=== PATIENT | male | born 1940 | race Caucasian/White ===

== ENCOUNTER → 2016-11-03 | Outpatient (CLI) | payer MEDICARE, BC ==
--- NOTE | 2016-11-03 11:17 | RADIOLOGY REPORT (SQ) ---
EXAM DESCRIPTION: MRI CERVICAL SPINE WITHOUT COMPLETED DATE/TIME: 11/03/2016 10:44 am REASON FOR STUDY: OTHER SYMPTOMS AND SIGNS INVOLVING THE MUSCULOSKELETAL SYSTEM (R29.898) R29.898 O TH SYMPTOMS AND SIGNS INVOLVING THE MUSCULOSKELETAL COMPARISON: None. TECHNIQUE: Sagittal and Axial imaging includes T1, T2, STIR and gradient echo sequences. LIMITATIONS: None. FINDINGS: ALIGNMENT: Reversal of cervical curvature. VERTEBRAE: Intact. BONE MARROW: Normal. No marrow replacement or reactive changes. DISCS: Diffuse decreased T2 weighted intervertebral disc signal. Disc space loss of height at C5-6 a nd C6-7 HARDWARE: None in the spine. CORD AND BASE OF BRAIN: Normal in size and signal intensity. SOFT TISSUES: No soft tissue masses. C1-C2: No significant spinal stenosis. C2-C3: No central or foraminal stenosis C3-C4: Mild diffuse posterior disc bulging and bony spurring partly effaces the ventral thecal sac wi thout cord flattening or abnormal intrinsic cord signal. Borderline central canal narrowing. Modera te to high-grade right foraminal narrowing at C3-4 from facet and uncovertebral hypertrophy. No left C3-4 foraminal narrowing. C4-C5: Broad diffuse posterior disc bulge and bony spurring effaces the ventral thecal sac, abuts the ventral cord with mild cord flattening. No abnormal intrinsic cord signal. Mild central canal narr owing. Moderate bilateral foraminal narrowing from facet and uncovertebral hypertrophy left greater than right C5-C6: Broad diffuse posterior disc bulge and bony spurring effaces the ventral thecal sac, abuts the ventral cord with mild cord flattening. No abnormal intrinsic cord signal. Mild central canal sten osis. High-grade bilateral foraminal narrowing from facet and uncovertebral hypertrophy. C6-C7: Broad diffuse posterior disc bulge and bony spurring partly effaces the ventral thecal sac and abuts the ventral cord without cord flattening or abnormal intrinsic cord signal. Mild central umair l narrowing. High-grade bilateral foraminal narrowing from facet and uncovertebral hypertrophy. C7-T1: Mild central canal narrowing results from broad diffuse posterior disc bulging and bony spurri ng along with bulky asymmetric right-sided facet hypertrophy and ligamentum flavum ossification. Mod erate bilateral foraminal narrowing from facet and uncovertebral hypertrophy right greater than left. OTHER: Bilateral foraminal narrowing at T1-2 and T2-3 related to facet hypertrophy. IMPRESSION: Multilevel degenerative changes as above. TECHNICAL DOCUMENTATION: JOB ID: [id number] [email or web address]- All Rights Reserved
== END ==
LOC: RAD 09:25
PROVIDERS: ATTEND Physician Assistant
DX: R29.898 Other symptoms and signs involving the musculoskeletal system (principal); M51.34 Other intervertebral disc degeneration, thoracic region
CPT/HCPCS: 72141

== ENCOUNTER → 2016-12-07 | Outpatient (CLI) | payer MEDICARE, BC ==
[2016-12-07 15:47] LABS: HEMATOCRIT 46.4 % (37.9-51.0); HEMOGLOBIN 16.5 g/dL (13.5-17.0); HGB HCT DIFFERENCE 3.1; MEAN CORPUSCULAR HEMOGLOBIN 33.5 pg (27.0-33.4); MEAN CORPUSCULAR HGB CONC 35.6 g/dL (32.0-36.0); MEAN CORPUSCULAR VOLUME 94 fl (80-97); RED BLOOD COUNT 4.94 10^6/uL (4.35-5.55); RED CELL DISTRIBUTION WIDTH 12.7 % (11.5-14.0); WHITE BLOOD COUNT 7.6 10^3/uL (4.0-10.5)
== END ==
LOC: OD 14:57
PROVIDERS: ATTEND Urology
DX: E29.1 Testicular hypofunction (principal); N52.8 Other male erectile dysfunction; N52.9 Male erectile dysfunction, unspecified; I10 Essential (primary) hypertension
CPT/HCPCS: 36415; 85027

== ENCOUNTER 2017-02-08 10:10 | Emergency (ER) | payer MEDICARE, BC ==
--- NOTE | 2017-02-08 10:24 | ER Document Report ---
ED Medical Screen (RME) - General Chief Complaint: Breathing Difficulty Stated Complaint: DIFFICULTY BREATHING Time Seen by Provider: 02/08/17 10:19 Notes: 76M here w c/o neck swelling and SOB only while lying flat that has prog worsened over past few days. States he had "some kind of spinal surgery" at [facility] 1 week ago and did not have any of these sx right after the surgery. He denies any CP discomfort. He has no SOB while sitting upright or with exertion. SOB is only w lying flat, states he feels like he is choking. Does not take any blood thinners. Denies purulent drainage. EXAM: L anterior lateral neck swelling w/o TTP Mod ecchymosis visualized No active drainage TRAVEL OUTSIDE OF THE [place] IN LAST 30 DAYS: No - Related Data Allergies/Adverse Reactions: No Known Allergies Allergy (Verified 02/08/17 10:12) Home Medications: Current Home Medications Amlodipine Besylate [Norvasc 10 mg Tablet] 1 tab PO BID 02/08/17 [History] Past Medical History - Social History Frequency of alcohol use: None Drug Abuse: None Renal/ Medical History: Denies: Hx Peritoneal Dialysis
[2017-02-08 11:05] LABS: ABSOLUTE BASOPHILS # (AUTO) 0.1 10^3/uL (0.0-0.2); ABSOLUTE EOSINOPHILS # (AUTO) 0.1 10^3/uL (0.0-0.6); ABSOLUTE LYMPHOCYTES (AUTO) 1.2 10^3/uL (0.5-4.7); ABSOLUTE MONOCYTES (AUTO) 1.3 10^3/uL (0.1-1.4); ABSOLUTE NEUT (AUTO) 7.6 10^3/uL (1.7-8.2); BASOPHILS % (AUTO) 0.6 % (0-2); EOSINOPHILS % (AUTO) 0.9 % (0-6); HEMATOCRIT 47.4 % (37.9-51.0); HEMOGLOBIN 16.1 g/dL (13.5-17.0); LYMPHOCYTES % (AUTO) 11.7 % (13-45); MEAN CORPUSCULAR HEMOGLOBIN 32.9 pg (27.0-33.4); MEAN CORPUSCULAR HGB CONC 33.9 g/dL (32.0-36.0); MEAN CORPUSCULAR VOLUME 97 fl (80-97); MONOCYTES % (AUTO) 12.5 % (3-13); PLATELET COUNT 345 10^3/uL (150-450); RED BLOOD COUNT 4.89 10^6/uL (4.35-5.55); RED CELL DISTRIBUTION WIDTH 13.2 % (11.5-14.0); SEGMENTED NEUTROPHILS % (AUTO) 74.3 % (42-78); TOTAL CELLS COUNTED % (AUTO) 100 %; WHITE BLOOD COUNT 10.3 10^3/uL (4.0-10.5)
--- NOTE | 2017-02-08 11:08 | ER Document Report ---
ED Respiratory Problem - General Mode of Arrival: Ambulatory Information source: Patient TRAVEL OUTSIDE OF THE [place] IN LAST 30 DAYS: No <MAXWELL DIEGO - Last Filed: 02/08/17 11:48> <TONI DELCID - Last Filed: 02/08/17 18:05> <SHRAVAN LI - Last Filed: 02/08/17 19:23> - General Chief Complaint: Breathing Difficulty Stated Complaint: DIFFICULTY BREATHING Time Seen by Provider: 02/08/17 10:19 Notes: Patient is 76 year old male with a history of hypertension presenting to the emergency department complaining of worsening difficultly breathing when supine onset a few days ago. Patient states he recently had a C4-C6 fusion with cage via anterior approach on 02/02/2017 and that his symptoms did not appear directly after surgery. Patient states that when he is supine it feels like "a flap is closing over his airway". (MAXWELL DIEGO) - Related Data Allergies/Adverse Reactions: No Known Allergies Allergy (Verified 02/08/17 10:12) Home Medications: Current Home Medications Amlodipine Besylate [Norvasc 10 mg Tablet] 10 mg PO Q12 02/08/17 [History] Losartan Potassium [Cozaar 50 mg Tablet] 50 mg PO DAILY 02/08/17 [History] Oxycodone HCl [Oxycodone HCl] 5 mg PO Q8HP PRN 02/08/17 [History] Polyethylene Glycol 3350 [Miralax Powder 17 gm/Packet] 1 packet PO DAILY [History] Testosterone Cypionate [Depo-Testosterone] 200 mg IM [id number] 02/08/17 [History] Past Medical History - General Information source: Patient - Social History Smoking Status: Former Smoker Frequency of alcohol use: None Drug Abuse: None Family History: Reviewed & Not Pertinent Patient has suicidal ideation: No Patient has homicidal ideation: No - Past Medical History Cardiac Medical History: Reports: Hx Hypertension Past Surgical History: Reports: Other - Left Lower Lobectomy in 1999. Cervical surgery, C4-C6 fusion& cage 01/2017 <MAXWELL DIEGO - Last Filed: 02/08/17 11:48> <TONI DELCID - Last Filed: 02/08/17 18:05> <SHRAVAN LI E - Last Filed: 02/08/17 19:23> Other: Right Rotator cuff replaced. Left shoulder replacement. (MAXWELL DIEGO) Review of Systems - Review of Systems Constitutional: No symptoms reported EENT: No symptoms reported Cardiovascular: No symptoms reported Respiratory: See HPI, Other - difficulty breathing Gastrointestinal: No symptoms reported Genitourinary: No symptoms reported Male Genitourinary: No symptoms reported Musculoskeletal: No symptoms reported Skin: No symptoms reported Hematologic/Lymphatic: No symptoms reported Neurological/Psychological: No symptoms reported -: Yes All other systems reviewed and negative <MAXWELL DIEGO - Last Filed: 02/08/17 11:48> Physical Exam - General General appearance: Appears well, Alert In distress: None - HEENT Head: Normocephalic, Atraumatic Eyes: Normal Conjunctiva: Normal Pupils: PERRL Neck: Other - Ecchymosis to the left anterior lateral neck which goes down to shoulder - Respiratory Respiratory status: No respiratory distress Chest status: Ecchymosis Breath sounds: Wheezing - bilaterally - Cardiovascular Rhythm: Regular Heart sounds: Normal auscultation - Abdominal Inspection: Normal - Back Back: Normal - Extremities General upper extremity: Normal ROM General lower extremity: Normal ROM - Neurological Neuro grossly intact: Yes Cognition: Normal Orientation: AAOx4 Stew Coma Scale Eye Opening: Spontaneous [place] Coma Scale Verbal: Oriented [place] Coma Scale Motor: Obeys Commands Stew Coma Scale Total: 15 Speech: Normal - Psychological Associated symptoms: Normal affect, Normal mood - Skin Skin Temperature: Warm Skin Moisture: Dry Skin Color: Normal <MAXWELL DIEGO - Last Filed: 02/08/17 11:48> - Vital signs Vitals: Temp Pulse Resp BP Pulse Ox 98.7 F 104 H 16 154/82 H 97 02/08/17 10:16 02/08/17 10:16 02/08/17 10:16 02/08/17 10:16 02/08/17 10:16 Course - Laboratory Result Diagrams: 02/08/17 10:48 02/08/17 10:48 <MAXWELL DIEGO - Last Filed: 02/08/17 11:48> - Laboratory Result Diagrams: 02/08/17 10:48 02/08/17 10:48 - Diagnostic Test Radiology reviewed: Image reviewed, Reports reviewed - CTA of the neck shows surgical changes in the cervical spine with hardware. An extensive fluid collection in the prevertebral soft tissues. This is likely a large postoperative seroma. There is atherosclerosis involving the carotid arteries with 80-90% stenosis of the proximal right internal carotid artery. - Consults Dr. John Lopez Consulted provider: other - Will except as an ER to ER transfer for observation to be sure this seroma does not continue to expand and cause airway obstruction. - Transfer of Care Care transferred to following provider: Dr. Morris <TONI DELCID - Last Filed: 02/08/17 18:05> - Laboratory Result Diagrams: 02/08/17 10:48 02/08/17 10:48 <SHRAVAN LI - Last Filed: 02/08/17 19:23> - Re-evaluation Re-evalutation: 02/08/17 15:41 Dr. Lopez has requested that the patient come by ambulance, rather than family bring him. At this time I am told it will be at the 7:00 shift change before transportation will be available. His family was asked to go get his medications from home so that he can have his medications and take them as they are prescribed. (TONI DELCID) 02/08/17 19:23 Transport in ED. Patient reevaluated and he is stable for transfer. (SHRAVAN LI) - Vital Signs Vital signs: Temp Pulse Resp BP Pulse Ox 98.7 F 104 H 21 H 150/78 H 95 02/08/17 10:16 02/08/17 10:16 02/08/17 17:01 02/08/17 17:00 02/08/17 17:01 - Laboratory Laboratory results interpreted by me: 02/08/17 02/08/17 10:48 10:48 Lymphocytes % 11.7 L Glucose 157 H - Transfer of Care Notes: 02/08/17 18:05 Pending transfer to [facility] ED to ED transfer. (TONI DELCID) Discharge <MAXWELL DIEGO - Last Filed: 02/08/17 11:48> <TONI DELCID - Last Filed: 02/08/17 18:05> <SHRAVAN LI - Last Filed: 02/08/17 19:23> - Discharge Clinical Impression: Stenosis of right internal carotid artery Seroma, postoperative Qualifiers: Surgical complication system/body Area: musculoskeletal system Procedure type: musculoskeletal Qualified Code(s): M96.842 - Postprocedural seroma of a musculoskeletal structure following a musculoskeletal system procedure Condition: Stable Disposition: [place] Referrals: NEREYDA SANCHEZ MD [Primary Care Provider] - Follow up as needed Scribe Attestation: 02/08/17 12:44 I personally performed the services described in the documentation, reviewed and edited the documentation which was dictated to the scribe in my presence, and it accurately records my words and actions. (TONI DELCID) Scribe Documentation - Scribe Written by Scribe:: Kristin Bright, 02/08/2017 11:16 acting as scribe for :: Melissa <MAXWELL DIEGO - Last Filed: 02/08/17 11:48>
[2017-02-08 11:13] LABS: ANION GAP 12 (5-19); BLOOD UREA NITROGEN 14 mg/dL (7-20); CALCIUM 9.3 mg/dL (8.4-10.2); CARBON DIOXIDE 28 mmol/L (22-30); CHLORIDE 99 mmol/L (98-107); GLUCOSE 157 mg/dL (75-110); POTASSIUM 3.7 mmol/L (3.6-5.0); SODIUM 138.5 mmol/L (137-145)
[2017-02-08] MEDS ORDERED: OXYCODONE HCL IR 5 MG TABLET PO ONE (11:22)
--- NOTE | 2017-02-08 12:08 | RADIOLOGY REPORT (SQ) ---
EXAM DESCRIPTION: CTA NECK COMPLETED DATE/TIME: 02/08/2017 11:39 am REASON FOR STUDY: recent spine surg, neck swelling; infxn vs hematom COMPARISON: None. 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 Multiplanar reconstruction. 3-D MIPS and Volume-rendered imag es acquired at the workstation and saved to PACS. Images are reviewed in soft tissue, bone, lung w indows. All CT scanners at this facility use dose modulation, iterative reconstruction, and/or weight based d osing when appropriate to reduce radiation dose to as low as reasonably achievable (ALARA). [facility]: Dose Right [facility]: CareDose [facility]: Dose Right [facility]: Teradose 4D [facility]: Dynamighty CONTRAST TYPE AND DOSE: contrast/concentration: Isovue 370.00 mg/ml; Total Contrast Delivered: 70.0 ml; Total Saline Delivered: 75.0 ml RENAL FUNCTION: BUN 14 creatinine 0.69. LIMITATIONS: None. FINDINGS: AORTIC ARCH: Normal three-vessel origin. Bilateral subclavian arteries are patent. No d issection. RIGHT CAROTIDS: Patent vessels. Dense calcification in the carotid bulb and proximal internal and ex ternal carotid arteries. Estimated 80 to 90% stenosis of the proximal internal carotid artery. RIGHT VERTEBRAL: Patent. No dissection. LEFT CAROTIDS: Patent vessels. Dense calcification in the carotid bulb and proximal internal and ext ernal carotid arteries. Estimated 30% narrowing of the proximal internal carotid artery. LEFT VERTEBRAL: Patent. No dissection. OTHER: 3-D reconstructions confirm findings. SKULL BASE: Intact. MAJOR SALIVARY GLANDS: No solid or cystic masses. No inflammatory changes. LYMPHADENOPATHY: No adenopathy. MUCOSAL MASSES OR ASYMMETRY: No mucosal masses or asymmetry. LARYNX/CORDS: No abnormal findings. LUNG APICES: Clear. BONES: Degenerative changes in the cervical spine. Surgical hardware at C4, C 5, C 6, and C7. PREVERTEBRAL SOFT TISSUES: Extensive edema with fluid collection anterior to the surgical hardware. Somewhat difficult to fully visualize due to metallic artifact. Prevertebral soft tissue thickening and fluid extends from the level of C2 to at least C7. Maximum transverse measurement 4.5 cm and ma ximum AP thickness 1.5 cm. A component extends to the left lateral prevertebral soft tissues at the level of the vocal cords, measuring 2.5 cm. THYROID: Normal size. No masses. PARANASAL SINUSES: Clear. OTHER: No other significant finding. IMPRESSION: 1. SURGICAL CHANGES IN THE CERVICAL SPINE WITH HARDWARE. EXTENSIVE FLUID COLLECTION IN THE PREVERTEB RAL SOFT TISSUES DESCRIBED ABOVE. THIS IS EITHER A LARGE POSTOPERATIVE SEROMA OR A POSTOPERATIVE ABSCESS. 2. ATHEROSCLEROSIS INVOLVING THE CAROTID ARTERIES WITH 80 TO 90% STENOSIS OF THE PROXIMAL RIGHT INTER NAL CAROTID ARTERY. RECOMMEND FOLLOW-UP INDICATED. COMMENT: Quality ID #[id number]: Measurements of distal internal carotid diameter were used as the denomina tor for stenosis measurement. TECHNICAL DOCUMENTATION: JOB ID: [id number] Quality ID # [id number]: Final reports with documentation of one or more dose reduction techniques (e.g., Au tomated exposure control, adjustment of the mA and/or kV according to patient size, use of iterative reconstruction technique) [address]- All Rights Reserved
[2017-02-08 19:36] VITALS: BP 139/95
== END 2017-02-08 19:38 | disposition short-term general hospital (02) ==
LOC: ER 10:10
DX: M96.842 Postprocedural seroma of a musculoskeletal structure following a musculoskeletal system procedure (principal); Y83.8 Other surgical procedures as the cause of abnormal reaction of the patient, or of later complication, without mention of misadventure at the time of the procedure; I65.21 Occlusion and stenosis of right carotid artery; R06.00 Dyspnea, unspecified; I10 Essential (primary) hypertension; Z98.1 Arthrodesis status; Z87.891 Personal history of nicotine dependence; Z90.2 Acquired absence of lung [part of]
CPT/HCPCS: 99285; 36415; 87040; 85025; 80048; 70498; A9270

== ENCOUNTER → 2017-04-17 | Outpatient (CLI) | payer MEDICARE, BC | LOC: OD 14:02 | PROVIDERS: ATTEND Urology | DX: E29.1 Testicular hypofunction (principal); N52.8 Other male erectile dysfunction; N52.9 Male erectile dysfunction, unspecified; I10 Essential (primary) hypertension; N40.1 Benign prostatic hyperplasia with lower urinary tract symptoms | CPT/HCPCS: 36415; 84153 ==

== ENCOUNTER → 2017-08-14 | Outpatient (CLI) | payer MEDICARE, BC ==
--- NOTE | 2017-08-14 11:07 | RADIOLOGY REPORT (SQ) ---
EXAM DESCRIPTION: CT SOFT TISSUE NECK WITH COMPLETED DATE/TIME: 08/14/2017 10:37 am REASON FOR STUDY: GASTRO-ESOPHAGEAL REFLUX DISEASE WITHOUT L72.0 EPIDERMAL CYST R13.19 OTHER DYSPH AGIA K21.9 GASTRO-ESOPHAGEAL REFLUX DISEASE WITHOUT ESOPHAGITIS COMPARISON: CT angio neck 02/08/2017 MRI cervical spine 11/09/2016 TECHNIQUE: Post IV contrasted scanning from skull base through lung apices with review of bone, soft tissue and lung windows. Reconstructed coronal and sagittal MPR images reviewed. All images stored on PACS. All CT scanners at this facility use dose modulation, iterative reconstruction, and/or weight based d osing when appropriate to reduce radiation dose to as low as reasonably achievable (ALARA). [facility]: Dose Right [facility]: CareDose [facility]: Dose Right [facility]: Teradose 4D [facility]: Ommven CONTRAST TYPE AND DOSE: contrast/concentration: Isovue 370.00 mg/ml; Total Contrast Delivered: 75.0 ml; Total Saline Delivered: 55.0 ml RENAL FUNCTION: Creatinine 0.7 RADIATION DOSE: 24 mGy . LIMITATIONS: None. FINDINGS: SKULL BASE: Intact. Inferior brain parenchyma in the field of view is unremarkable. MAJOR SALIVARY GLANDS: No solid or cystic masses. No inflammatory changes. LYMPHADENOPATHY: No adenopathy. MUCOSAL MASSES OR ASYMMETRY: No mucosal masses or asymmetry. LARYNX/CORDS: No abnormal findings. VASCULAR STRUCTURES: There is heavy atherosclerotic calcification at both carotid bifurcations. Grea ter than 50% diameter stenosis of the proximal internal carotid arteries is suggested by heavy calcif ic plaque. Carotid Doppler exam is recommended for followup. LUNG APICES: Obstructive lung disease. No nodules. BONES: Post cervical anterior discectomy and fusion with fixation plate and disc spacers from C3 thro ugh C7. No lucency around the hardware worrisome for loosening. THYROID: Normal size. No masses. PARANASAL SINUSES: Clear. OTHER: Prevertebral fluid collection seen 02/08/2017 is no longer identified. IMPRESSION: No residual prevertebral fluid collection Cervical fusion hardware intact Heavy calcification of the bilateral carotid bifurcations, greater than 50% stenosis is suspected by CT. Please correlate with carotid Doppler exam. Laryngeal structures on today's CT are unremarkable. No CT evidence of vocal cord paralysis TECHNICAL DOCUMENTATION: JOB ID: [id number] Quality ID # [id number]: Final reports with documentation of one or more dose reduction techniques (e.g., Au tomated exposure control, adjustment of the mA and/or kV according to patient size, use of iterative reconstruction technique) 2010 [employer]- All Rights Reserved Reading location - IP/workstation name: [email or web address]
== END ==
LOC: RAD 09:43
PROVIDERS: ATTEND Otolaryngology
DX: L72.0 Epidermal cyst (principal); R13.19 Other dysphagia; K21.9 Gastro-esophageal reflux disease without esophagitis; R49.0 Dysphonia
CPT/HCPCS: 70491; 82565

== ENCOUNTER 2017-08-17 16:35 | Emergency (ER) | payer MEDICARE, BC ==
[2017-08-17] MEDS ORDERED: BUPIVACAINE HCL 0.5 % INJ/PF 30 ML SDV INJ ONE (17:12)
--- NOTE | 2017-08-17 17:13 | ER Document Report ---
ED General - General Chief Complaint: Finger Injury Stated Complaint: FINGER LACERATION Time Seen by Provider: 08/17/17 17:12 Mode of Arrival: Ambulatory Information source: Patient Notes: 76 yr old male presents with left hand 4th digit injury with a saw. Pt denies any other injuries, tetanus is not up to date TRAVEL OUTSIDE OF THE [place] IN LAST 30 DAYS: No - HPI Onset: Just prior to arrival Onset/Duration: Sudden Quality of pain: Sharp Severity: Severe Pain Level: 5 Associated symptoms: Other Exacerbated by: Denies Relieved by: Denies Similar symptoms previously: No Recently seen / treated by doctor: No - Related Data Allergies/Adverse Reactions: No Known Allergies Allergy (Verified 08/17/17 16:36) Past Medical History - Social History Smoking Status: Former Smoker Cigarette use (# per day): No Chew tobacco use (# tins/day): No Frequency of alcohol use: None Drug Abuse: None Family History: Reviewed & Not Pertinent Patient has suicidal ideation: No Patient has homicidal ideation: No - Past Medical History Cardiac Medical History: Reports: Hx Hypertension Renal/ Medical History: Denies: Hx Peritoneal Dialysis Past Surgical History: Reports: Hx Orthopedic Surgery - C4-6 fusion, Other - Left Lower Lobectomy in 1999. Cervical surgery, C4-C6 fusion& cage 01/2017 Review of Systems - Review of Systems Notes: REVIEW OF SYSTEMS: CONSTITUTIONAL : Denies fever, chills, or sweats. Denies recent illness. EENT: Denies eye, ear, throat, or mouth pain or symptoms. Denies nasal or sinus congestion or discharge. Denies throat, tongue, or mouth swelling or difficulty swallowing. CARDIOVASCULAR: Denies chest pain. Denies palpitations or racing or irregular heart beat. Denies ankle edema. RESPIRATORY: Denies cough, cold, or chest congestion. Denies shortness of breath, difficulty breathing, or wheezing. GASTROINTESTINAL: Denies abdominal pain or distention. Denies nausea, vomiting , or diarrhea. Denies blood in vomitus, stools, or per rectum. Denies black, tarry stools. Denies constipation. GENITOURINARY: Denies difficulty urinating, painful urination, burning, frequency, blood in urine, or discharge. MUSCULOSKELETAL: Denies back or neck pain or stiffness. Denies joint pain or swelling. SKIN: finger injury. HEMATOLOGIC : Denies easy bruising or bleeding. LYMPHATIC: Denies swollen, enlarged glands. NEUROLOGICAL: Denies confusion or altered mental status. Denies passing out or loss of consciousness. Denies dizziness or lightheadedness. Denies headache. Denies weakness or paralysis or loss of use of either side. Denies problems with gait or speech. Denies sensory loss, numbness, or tingling. Denies seizures. PSYCHIATRIC: Denies anxiety or stress. Denies depression, suicidal ideation, or homicidal ideation. ALL OTHER SYSTEMS REVIEWED AND NEGATIVE. Dictation was performed using [employer] voice recognition software PHYSICAL EXAMINATION: GENERAL: Well-appearing, well-nourished and in no acute distress. HEAD: Atraumatic, normocephalic. EYES: Pupils equal round and reactive to light, extraocular movements intact, sclera anicteric, conjunctiva are normal. ENT: Nares patent, oropharynx clear without exudates. Moist mucous membranes. NECK: Normal range of motion, supple without lymphadenopathy LUNGS: Breath sounds clear to auscultation bilaterally and equal. No wheezes rales or rhonchi. HEART: Regular rate and rhythm without murmurs ABDOMEN: Soft, nontender, nondistended abdomen. No guarding, no rebound. No masses appreciated. Musculoskeletal: Normal range of motion, no pitting or edema. No cyanosis. NEUROLOGICAL: Cranial nerves grossly intact. Normal speech, normal gait. Normal sensory, motor exams PSYCH: Normal mood, normal affect. SKIN:mangled finger distal 4th digit left hand , ring removed, nail intact . Physical Exam - Vital signs Vitals: Temp Pulse Resp BP Pulse Ox 98.4 F 103 H 16 177/77 H 95 08/17/17 16:41 08/17/17 16:41 08/17/17 16:41 08/17/17 16:41 08/17/17 16:41 Course - Re-evaluation Re-evalutation: 08/17/17 18:45 Area was explored extensively, I can see where the bone is located but does not appear to be fractured, it was cleansed extensively, I was able to close the wound with approximately 15 sutures after digital nerve block. i have high concern for need for amputation, will give ancef, tetanus and follow up with dr whipple After performing a Medical Screening Examination, I estimate there is LOW risk for RETAINED FOREIGN BODY, thus I consider the discharge disposition reasonable. Also, there is no evidence or peritonitis, sepsis, or toxicity. I have reevaluated this patient multiple times and no significant life threatening changes are noted. The patient and I have discussed the diagnosis and risks, and we agree with discharging home with close follow-up with the understanding that symptoms and presentations can change. We also discussed returning to the Emergency Department immediately if new or worsening symptoms occur. We have discussed the symptoms which are most concerning (e.g., changing or worsening pain, fever, numbness, weakness, cool or painful digits) that necessitate immediate return. - Vital Signs Vital signs: Temp Pulse Resp BP Pulse Ox 98.4 F 103 H 11 L 161/76 H 94 08/17/17 16:41 08/17/17 16:41 08/17/17 17:01 08/17/17 17:00 08/17/17 17:01 - Diagnostic Test Radiology reviewed: Image reviewed Procedures - Laceration/Wound Repair Left Hand 4th digit Time completed: 18:20 Wound length (cm): 2.8 Wound's Depth, Shape: Into muscle, Flap, Contused tissue Laceration pre-procedure: Sterile PPE donned, Betadine prep applied, Sterile drapes applied, Shur-Clens applied Anesthetic type: 0.5% Bupivacaine Volume Anesthetic (mLs): 10 Wound explored: No foreign body removed, Contaminated Irrigated w/ Saline (mLs): 4,000 Wound Debrided: Extensive Wound Repaired With: Sutures Suture Size/Type: 6:0, Ethilon Number of Sutures: 15 Layer Closure?: No Post-procedure wound care: Sterile dressing applied Post-procedure NV exam normal: Yes Complications: No Discharge - Discharge Clinical Impression: Finger laceration Qualifiers: Encounter type: initial encounter Finger: ring finger Damage to nail status: without damage Foreign body presence: without foreign body Laterality: left Qualified Code(s): S61.215A - Laceration without foreign body of left ring finger without damage to nail, initial encounter Condition: Stable Disposition: HOME, SELF-CARE Instructions: Laceration Care ([facility]), Prophylactic Antibiotic ([facility]) Prescriptions: Cephalexin Monohydrate [Keflex 500 mg Capsule] 500 mg PO Q6H 10 Days capsule Oxycodone HCl/Acetaminophen [Percocet 5-325 mg Tablet] 1 - 2 tab PO Q4H PRN #15 tablet PRN Reason: Referrals: RUEL MATA DO [Primary Care Provider] - Follow up as needed RENEE WHIPPLE DO [ACTIVE STAFF] - Follow up tomorrow
--- NOTE | 2017-08-17 17:49 | RADIOLOGY REPORT (SQ) ---
EXAM DESCRIPTION: HAND LEFT 3 VIEWS COMPLETED DATE/TIME: 08/17/2017 5:10 pm REASON FOR STUDY: finger deformity COMPARISON: None. EXAM PARAMETERS: NUMBER OF VIEWS: Three views. TECHNIQUE: AP, lateral and oblique radiographic images acquired of the left hand. LIMITATIONS: None. FINDINGS: MINERALIZATION: Normal. BONES: No acute fracture or dislocation. JOINTS: No effusions. SOFT TISSUES: Distal 4th digit soft tissue laceration -avulsion.. No foreign body. OTHER: No other significant finding. IMPRESSION: No fracture identified. Distal 4th digit soft tissue laceration -avulsion. TECHNICAL DOCUMENTATION: JOB ID: [id number] [place]-[id number] [employer]- All Rights Reserved Reading location - IP/workstation name: [email or web address]
[2017-08-17] MEDS ORDERED: CEFAZOLIN 1 GM/D5W RTU 1 GM/50 ML RTUPB IV ONE (18:17)
[2017-08-17] MEDS ORDERED: DIPH/PERTUSS(ACELL)/TETANUS VAC/PF 0.5 ML SYR (>=10YO) IM ONE (18:17)
[2017-08-17 18:57] VITALS: BP 169/91
== END 2017-08-17 18:57 | disposition home or self-care (01) ==
LOC: ER 16:35
PROC: 0HQGXZZ Repair Left Hand Skin, External Approach (ICD-10-PCS; principal; 2017-08-17)
DX: S61.215A Laceration without foreign body of left ring finger without damage to nail, initial encounter (principal); W31.9XXA Contact with unspecified machinery, initial encounter; Z87.891 Personal history of nicotine dependence; I10 Essential (primary) hypertension
CPT/HCPCS: 99283; 90471; 96365; 73130; 90715; 12002; J3490; J0690